=== PATIENT | male | born 1955 | race Two or more races ===

== ENCOUNTER → 2020-02-20 | Outpatient (CLI) | payer MEDICARE, MEDICAID ==
[2020-02-20 08:18] LABS: HEMATOCRIT 30.8 % (37.9-51.0); HEMOGLOBIN 10.4 g/dL (13.5-17.0); MEAN CORPUSCULAR HEMOGLOBIN 29.3 pg (27.0-33.4); MEAN CORPUSCULAR HGB CONC 33.9 g/dL (32.0-36.0); MEAN CORPUSCULAR VOLUME 86 fl (80-97); PLATELET COUNT 350 10^3/uL (150-450); RED BLOOD COUNT 3.57 10^6/uL (4.35-5.55); RED CELL DISTRIBUTION WIDTH 14.9 % (11.5-14.0); WHITE BLOOD COUNT 7.4 10^3/uL (4.0-10.5)
[2020-02-20 08:39] LABS: ALBUMIN 3.3 g/dL (3.5-5.0); ALKALINE PHOSPHATASE 93 U/L (38-126); ANION GAP 8 (5-19); ASPARTATE AMINO TRANSFERASE 17 U/L (17-59); BILIRUBIN,DIRECT 0.2 mg/dL (0.0-0.4); BILIRUBIN,TOTAL 0.2 mg/dL (0.2-1.3); BLOOD UREA NITROGEN 19 mg/dL (7-20); CALCIUM 8.5 mg/dL (8.4-10.2); CARBON DIOXIDE 23 mmol/L (22-30); CHLORIDE 108 mmol/L (98-107); CHOLESTEROL 78.34 mg/dL (0-200); GLUCOSE 75 mg/dL (75-110); IRON(TIBC) 29.9 ug/dL (49-181); POTASSIUM 4.2 mmol/L (3.6-5.0); TOTAL PROTEIN 6.1 g/dL (6.3-8.2); TRIGLYCERIDES 92 mg/dL (<150)
[2020-02-20 08:50] LABS: DIRECT LDL 37 mg/dL (<100)
== END ==
LOC: OD 07:13
PROVIDERS: ATTEND Physician Assistant
DX: E11.22 Type 2 diabetes mellitus with diabetic chronic kidney disease (principal); I12.9 Hypertensive chronic kidney disease with stage 1 through stage 4 chronic kidney disease, or unspecified chronic kidney disease; N18.9 Chronic kidney disease, unspecified; D63.1 Anemia in chronic kidney disease; E78.5 Hyperlipidemia, unspecified; R35.1 Nocturia
CPT/HCPCS: 36415; 80053; 80061; 83036; 83540; 83550; 84153; 85027

== ENCOUNTER → 2020-09-22 | Outpatient (CLI) | payer MEDICARE, MEDICAID ==
--- NOTE | 2020-09-22 16:33 | RADIOLOGY REPORT (SQ) ---
EXAM DESCRIPTION: [employer]; ARTERIAL LOWER EXTREM BILAT IMAGES COMPLETED DATE/TIME: 09/22/2020 4:08 pm REASON FOR STUDY: LT FOOT ULCER L97.522 NON-PRS CHRONIC ULCER OTH PRT LEFT FOOT W FAT LAYER COMPARISON: None. TECHNIQUE: Dynamic and static brush scale and color images acquired of the lower extremity arteries. Additional selected spectral images recorded. ABIs recorded. LIMITATIONS: None. FINDINGS: RIGHT LEG: ABIS: ABIs range from 0.71 to 1.02. INFLOW ARTERIES: Normal, no obstruction evident. FEMORAL ARTERIES:Multiphasic waveforms. Normal, no velocity elevation to suggest focal stenosis. Norm al color Doppler evaluation. No aneurysm. POPLITEAL ARTERY:Multiphasic waveforms. Normal, no velocity elevation to suggest focal stenosis. Norm al color Doppler evaluation. No aneurysm. PATENT TIBIOPERONEAL TRUNK AND 3 VESSEL RUNOFF: Numerous collateral vessels below the knee. Small se gment occlusions in the right posterior tibial and anterior tibial arteries. Retrograde flow is seen in the distal right anterior tibial artery. TBI: Not performed. OTHER: No other significant finding. LEFT LEG: ABIS: Normal. Greater than 1. INFLOW ARTERIES: Normal, no obstruction evident. FEMORAL ARTERIES:Multiphasic waveforms. Normal, no velocity elevation to suggest focal stenosis. Norm al color Doppler evaluation. No aneurysm. POPLITEAL ARTERY:Multiphasic waveforms. Normal, no velocity elevation to suggest focal stenosis. Norm al color Doppler evaluation. No aneurysm. PATENT TIBIOPERONEAL TRUNK AND 3 VESSEL RUNOFF: At least 2 vessel runoff on the left. TBI: Not performed. OTHER: No other significant finding. 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 ABIs on the right are consistent with normal to moderate i schemia. No focal high-grade stenosis. COMMENT: [facility] NORMAL: Greater than 1.0 MINIMAL DISEASE: 0.9 to 1.0 CLAUDICATION: 0.5 to 0.9 SEVERE ARTERIAL DISEASE: Less than 0.5 [facility] NORMAL: Greater than 1.0 (1.2 If Heavy Calcifications) NORMAL TO MILD ISCHEMIA: 0.8 to 1.0 MODERATE ISCHEMIA: 0.4 to 0.8 SEVERE ISCHEMIA: Less than 0.4 TECHNICAL DOCUMENTATION: JOB ID: [id number] [employer]- All Rights Reserved Reading location - IP/workstation name: [email or web address]
--- NOTE | 2020-09-22 16:33 | RADIOLOGY REPORT (SQ) ---
EXAM DESCRIPTION: [employer]; ARTERIAL LOWER EXTREM BILAT IMAGES COMPLETED DATE/TIME: 09/22/2020 4:08 pm REASON FOR STUDY: LT FOOT ULCER L97.522 NON-PRS CHRONIC ULCER OTH PRT LEFT FOOT W FAT LAYER COMPARISON: None. TECHNIQUE: Dynamic and static brush scale and color images acquired of the lower extremity arteries. Additional selected spectral images recorded. ABIs recorded. LIMITATIONS: None. FINDINGS: RIGHT LEG: ABIS: ABIs range from 0.71 to 1.02. INFLOW ARTERIES: Normal, no obstruction evident. FEMORAL ARTERIES:Multiphasic waveforms. Normal, no velocity elevation to suggest focal stenosis. Norm al color Doppler evaluation. No aneurysm. POPLITEAL ARTERY:Multiphasic waveforms. Normal, no velocity elevation to suggest focal stenosis. Norm al color Doppler evaluation. No aneurysm. PATENT TIBIOPERONEAL TRUNK AND 3 VESSEL RUNOFF: Numerous collateral vessels below the knee. Small se gment occlusions in the right posterior tibial and anterior tibial arteries. Retrograde flow is seen in the distal right anterior tibial artery. TBI: Not performed. OTHER: No other significant finding. LEFT LEG: ABIS: Normal. Greater than 1. INFLOW ARTERIES: Normal, no obstruction evident. FEMORAL ARTERIES:Multiphasic waveforms. Normal, no velocity elevation to suggest focal stenosis. Norm al color Doppler evaluation. No aneurysm. POPLITEAL ARTERY:Multiphasic waveforms. Normal, no velocity elevation to suggest focal stenosis. Norm al color Doppler evaluation. No aneurysm. PATENT TIBIOPERONEAL TRUNK AND 3 VESSEL RUNOFF: At least 2 vessel runoff on the left. TBI: Not performed. OTHER: No other significant finding. 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 ABIs on the right are consistent with normal to moderate i schemia. No focal high-grade stenosis. COMMENT: [facility] NORMAL: Greater than 1.0 MINIMAL DISEASE: 0.9 to 1.0 CLAUDICATION: 0.5 to 0.9 SEVERE ARTERIAL DISEASE: Less than 0.5 [facility] NORMAL: Greater than 1.0 (1.2 If Heavy Calcifications) NORMAL TO MILD ISCHEMIA: 0.8 to 1.0 MODERATE ISCHEMIA: 0.4 to 0.8 SEVERE ISCHEMIA: Less than 0.4 TECHNICAL DOCUMENTATION: JOB ID: [id number] [email or web address]- All Rights Reserved Reading location - IP/workstation name: [email or web address]
== END ==
LOC: SP 11:52
PROVIDERS: ATTEND Preventive Medicine Undersea and Hyperbaric Medicine
DX: L97.522 Non-pressure chronic ulcer of other part of left foot with fat layer exposed (principal); I77.1 Stricture of artery
CPT/HCPCS: 93922; 93925

== ENCOUNTER 2020-10-06 11:37 | Emergency (ER) | payer MEDICARE, MEDICAID ==
--- NOTE | 2020-10-06 12:10 | ER Document Report ---
ED Medical Screen (RME) - General Chief Complaint: Altered Mental Status Stated Complaint: ALTERED MENTAL STATUS Time Seen by Provider: 10/06/20 12:00 Primary Care Provider: DARREL GERMAIN DPM [Primary Care Provider] - Follow up as needed Notes: Patient presents after having 2 episodes in which he was staring off for several minutes and was not responding when patient's caregiver tried to get his attention. Caregiver states that episodes only lasted for a few minutes and then patient had return back to his normal baseline. Patient without any history of seizures. Patient does have a history of prostate cancer for which he is receiving treatment, diabetes and a current foot ulcer. Patient denies any complaints at this time. Patient awake alert and oriented. Patient denies any chest pain nausea or vomiting. I have greeted and performed a rapid initial assessment of this patient. A comprehensive ED assessment and evaluation of the patient, analysis of test results and completion of the medical decision making process will be conducted by additional ED providers. 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
--- NOTE | 2020-10-06 12:37 | RADIOLOGY REPORT (SQ) ---
EXAM DESCRIPTION: CHEST SINGLE VIEW IMAGES COMPLETED DATE/TIME: 10/06/2020 12:24 pm REASON FOR STUDY: AMS COMPARISON: None. EXAM PARAMETERS: NUMBER OF VIEWS: One view. TECHNIQUE: Single frontal radiographic view of the chest acquired. RADIATION DOSE: NA LIMITATIONS: None. FINDINGS: LUNGS AND PLEURA: No opacities, masses or pneumothorax. No pleural effusion. MEDIASTINUM AND HILAR STRUCTURES: No masses. Contour normal. HEART AND VASCULAR STRUCTURES: Heart normal in size. Normal vasculature. BONES: No acute findings. HARDWARE: Left subclavian base chest port with catheter tip at SVC. OTHER: No other significant finding. IMPRESSION: NO ACUTE RADIOGRAPHIC FINDING IN THE CHEST. TECHNICAL DOCUMENTATION: JOB ID: [id number] 2010 [employer]- All Rights Reserved Reading location - IP/workstation name: [email or web address]
--- NOTE | 2020-10-06 12:42 | RADIOLOGY REPORT (SQ) ---
EXAM DESCRIPTION: CT HEAD WITHOUT IMAGES COMPLETED DATE/TIME: 10/06/2020 12:22 pm REASON FOR STUDY: AMS, staring episodes, hx prostate Ca COMPARISON: None. TECHNIQUE: Axial images acquired through the brain without intravenous contrast. Images reviewed wi th bone, brain and subdural windows. Additional sagittal and coronal reconstructions were generated. Images stored on PACS. All CT scanners at this facility use dose modulation, iterative reconstruction, and/or weight based d osing when appropriate to reduce radiation dose to as low as reasonably achievable (ALARA). [facility]: Dose Right [facility]: CareDose [facility]: Dose Right [facility]: Teradose 4D [facility]: [employer] RADIATION DOSE: CT Rad equipment meets quality standard of care and radiation dose reduction techniq ues were employed. CTDIvol: 53.2 mGy. DLP: 1044 mGy-cm. mGy. LIMITATIONS: None. FINDINGS: VENTRICLES: Mildly prominent. CEREBRUM: No masses. No hemorrhage. No midline shift. No evidence for acute infarction. Normal gra y/white matter differentiation. No areas of low density in the white matter. Areas of periventricula r and subcortical hypoattenuation, nonspecific but likely sequelae of microangiopathic disease. CEREBELLUM: No masses. No hemorrhage. No alteration of density. No evidence for acute infarction. EXTRAAXIAL SPACES: No fluid collections. No masses. ORBITS AND GLOBE: No intra- or extraconal masses. Normal contour of globe without masses. CALVARIUM: No fracture. PARANASAL SINUSES: No fluid or mucosal thickening. SOFT TISSUES: No mass or hematoma. OTHER: No other significant finding. IMPRESSION: No evidence of acute intracranial process. Periventricular and subcortical hypoattenuation, nonspecific but likely sequelae of microangiopathic disease. EVIDENCE OF ACUTE STROKE: NO. COMMENT: Quality ID # [id number]: Final reports with documentation of one or more dose reduction techniques (e.g., Automated exposure control, adjustment of the mA and/or kV according to patient size, use of iterative reconstruction technique) TECHNICAL DOCUMENTATION: JOB ID: [id number] 2010 [email or web address]- All Rights Reserved Reading location - IP/workstation name: [email or web address]
[2020-10-06 13:33] LABS: ABSOLUTE EOSINOPHILS # (AUTO) 0.5 10^3/uL (0.0-0.6); ABSOLUTE LYMPHOCYTES (AUTO) 0.9 10^3/uL (0.5-4.7); ABSOLUTE MONOCYTES (AUTO) 0.6 10^3/uL (0.1-1.4); ABSOLUTE NEUT (AUTO) 4.3 10^3/uL (1.7-8.2); BASOPHILS % (AUTO) 0.4 % (0-2); EOSINOPHILS % (AUTO) 7.6 % (0-6); HEMATOCRIT 28.6 % (37.9-51.0); HEMOGLOBIN 9.5 g/dL (13.5-17.0); LYMPHOCYTES % (AUTO) 14.9 % (13-45); MEAN CORPUSCULAR HEMOGLOBIN 28.9 pg (27.0-33.4); MEAN CORPUSCULAR HGB CONC 33.2 g/dL (32.0-36.0); MEAN CORPUSCULAR VOLUME 87 fl (80-97); MONOCYTES % (AUTO) 8.8 % (3-13); PLATELET COUNT 184 10^3/uL (150-450); RED BLOOD COUNT 3.28 10^6/uL (4.35-5.55); RED CELL DISTRIBUTION WIDTH 12.6 % (11.5-14.0); SEGMENTED NEUTROPHILS % (AUTO) 68.3 % (42-78); TOTAL CELLS COUNTED % (AUTO) 100 %; WHITE BLOOD COUNT 6.3 10^3/uL (4.0-10.5)
[2020-10-06 13:35] LABS: APPEARANCE,URINE SLIGHTLY-CLOUDY; BILIRUBIN,URINE NEGATIVE (NEGATIVE); COLOR,URINE YELLOW; GLUCOSE, URINE NEGATIVE (NEGATIVE); KETONES,URINE NEGATIVE (NEGATIVE); LEUKOCYTE ESTERASE,URINE LARGE (NEGATIVE); NITRITE,URINE POSITIVE (NEGATIVE); PROTEIN,URINE NEGATIVE (NEGATIVE); URINE SPECIFIC GRAVITY 1.008; UROBILINOGEN,URINE NEGATIVE mg/dL (<2.0)
[2020-10-06] MEDS ORDERED: CEFTRIAXONE 1 GM/D5W RTU 1 GM/50 ML RTUPB IV ONE (13:43)
[2020-10-06 13:50] LABS: ALBUMIN 4.2 g/dL (3.5-5.0); ALKALINE PHOSPHATASE 72 U/L (38-126); ANION GAP 12 (5-19); ASPARTATE AMINO TRANSFERASE 37 U/L (17-59); BILIRUBIN,DIRECT 0.4 mg/dL (0.0-0.4); BILIRUBIN,TOTAL 0.4 mg/dL (0.2-1.3); BLOOD UREA NITROGEN 43 mg/dL (7-20); CALCIUM 10.4 mg/dL (8.4-10.2); CARBON DIOXIDE 26 mmol/L (22-30); CHLORIDE 102 mmol/L (98-107); GLUCOSE 85 mg/dL (75-110); POTASSIUM 4.5 mmol/L (3.6-5.0)
[2020-10-06] MEDS ORDERED: NORMAL SALINE 1000 ML 1,000 ML IV ONE (13:57)
--- NOTE | 2020-10-06 14:17 | ER Document Report ---
ED General - General Chief Complaint: Altered Mental Status Stated Complaint: ALTERED MENTAL STATUS Time Seen by Provider: 10/06/20 12:00 Primary Care Provider: DARREL GERMAIN DPM [Primary Care Provider] - Follow up as needed MARY MONROY MD [NO LOCAL MD] - Follow up in 3-5 days - [facility] Notes: Patient is a 65-year-old male with a past medical history of prostate cancer on chemotherapy, diabetes who presents with 2 episodes of altered mental status. Patient is with his caregiver. He lives in a snf and has 24/7 care. The caregiver states that the episode happened just prior to arrival. She states he was getting his haircut when he had an episode that lasted about 3 minutes where he stared off into the ceiling and was not responding to his name. This happened twice in 5 minutes. Nothing made it better or worse. They checked his sugar and it was 76 prior to the incident. Patient is now completely back to normal. Denies any complaints. He is incontinent and wears a depends. He has not had any recent prostate instrumentation. No fevers or chills. - Related Data Allergies/Adverse Reactions: No Known Allergies Allergy (Unverified 10/06/20 12:09) Past Medical History - General Information source: Patient, Parent - Social History Smoking Status: Never Smoker Chew tobacco use (# tins/day): No Frequency of alcohol use: None Drug Abuse: None Family History: Reviewed & Not Pertinent Patient has homicidal ideation: No Review of Systems - Review of Systems Notes: CONSTITUTIONAL: No fever, fatigue or weight loss. SKIN: No rash. HENT: No congestion, ear pain, or sore throat. CARDIOVASCULAR: No chest pain or edema. RESPIRATORY: No cough, shortness of breath, congestion, or wheezing. GASTROINTESTINAL: No abdominal pain, nausea, vomiting, bloody stools or diarrhea. GENITOURINARY: No dysuria. MUSCULOSKELETAL: No joint pain or swelling. LYMPHATIC: No swollen glands. NEUROLOGIC: No seizures. No headache or focal weakness. Positive for 2 episodes of altered mental status. HEMATOLOGIC: No unusual bruising or bleeding. PSYCHIATRIC: No depression or anxiety. Physical Exam - Vital signs Vitals: Temp Pulse Resp BP Pulse Ox 97.4 F 63 18 102/72 100 10/06/20 11:50 10/06/20 11:50 10/06/20 11:50 11/25/20 11:50 10/06/20 11:50 - General General appearance: Appears well Notes: VITAL SIGNS: Within normal limits. GENERAL: No acute distress, non-toxic appearance. HEAD: Normal with no signs of head trauma. EYES: EOMI, conjunctiva normal, no discharge. EARS: Hearing grossly intact. NOSE: Normal. NECK: Normal range of motion, no tenderness, supple, no lymphadenopathy, No adenopathy, no JVD. CHEST: Clear breath sounds bilaterally. No wheezes, rales, or rhonchi. CARDIAC: Regular rate and rhythm. S1 and S2, without murmurs, gallops, or rubs. VASCULAR: No Edema. Peripheral pulses normal and equal ABDOMEN: Normal and soft with no tenderness, no masses or pulsatile masses. GENITOURINARY: Normal, No tenderness MUSCULOSKELETAL: Good range of motion of all major joints. Extremities without clubbing, cyanosis or edema. NEUROLOGICAL: Alert and oriented x 3. No focal sensory or strength deficits. Speech normal. Follows commands appropriately. NIH is 0. PSYCHIATRIC: Normal Affect, judgement and mood. SKIN: Normal appearance with no rashes or lesions. Course - Re-evaluation Re-evalutation: 10/06/20 14:15 Patient is back at baseline. He has no complaints. He is neurologically intact with no focal deficits. He does have evidence of a UTI with nitrates and leukocyte esterase. He is at risk for UTIs because he wears depends. This could be a possible etiology of his 2 episodes of altered mental status. Patient's head CT and chest x-ray were negative for acute pathology. He does appear slightly dehydrated on his blood work and creatinine. I will give fluids and Rocephin. Urine will be sent for culture. Likely, patient will be discharg ed back to the snf. We will ambulate him to make sure he is steady on his feet. Patient and caregiver are in agreement to the plan. Patient ambulated without difficulty. He is at baseline. He is very agreeable with the plan for discharge. His caregiver did ask for a referral to neurology in case this episode could have been seizure-like. 10/06/20 20:41 - Vital Signs Vital signs: Temp Pulse Resp BP Pulse Ox 97.4 F 78 15 123/75 100 10/06/20 11:50 10/06/20 15:00 10/06/20 15:51 10/06/20 15:51 10/06/20 15:51 - Laboratory Result Diagrams: 10/06/20 12:55 10/06/20 12:55 Laboratory results interpreted by me: 10/06/20 10/06/20 10/06/20 12:55 12:55 13:00 RBC 3.28 L Hgb 9.5 L Hct 28.6 L Eos % (Auto) 7.6 H BUN 43 H Creatinine 2.02 H Est GFR ( Amer) 40 L Est GFR (MDRD) Non-Af 33 L Calcium 10.4 H ALT 57 H Urine Nitrite POSITIVE H Ur Leukocyte Esterase LARGE H - Diagnostic Test Radiology reviewed: Image reviewed, Reports reviewed - EKG Interpretation by Me EKG shows normal: Sinus rhythm Rate: Normal Rhythm: NSR When compared to previous EKG there are: Previous EKG unavailable Additional EKG results interpreted by me: 10/06/20 14:18 Sinus rhythm at a rate of 73. QTc 432. No acute ST changes. No previous EKG available for comparison. Discharge - Discharge Clinical Impression: Mental status change resolved Urinary tract infection Qualifiers: Urinary tract infection type: site unspecified Hematuria presence: without hematuria Qualified Code(s): N39.0 - Urinary tract infection, site not specified Condition: Stable Disposition: HOME, SELF-CARE Instructions: Urinary Tract Infection ([facility]) Additional Instructions: Your work-up today is reassuring. You do have evidence of a urinary tract infection. Please take the antibiotics as prescribed. Please follow-up with the family doctor. Please return to the ER for any fevers, worsening symptoms, any other repeat episodes. Prescriptions: Cephalexin Monohydrate [Keflex 500 mg Capsule] 500 mg PO QID 7 Days #28 capsule Referrals: DARREL GERMAIN DPM [Primary Care Provider] - Follow up as needed MARY MONROY MD [NO LOCAL MD] - Follow up in 3-5 days
[2020-10-06 16:01] VITALS: BP 123/75
--- NOTE | 2020-10-06 19:40 | EKG REPORT ---
SEVERITY:- NORMAL ECG - SINUS RHYTHM : Confirmed by: Yuriy Monge MD 06-Oct-2020 19:39:35
== END 2020-10-06 17:16 | disposition home or self-care (01) ==
LOC: ER 11:37
DX: N39.0 Urinary tract infection, site not specified (principal); R32 Unspecified urinary incontinence; R41.82 Altered mental status, unspecified; E11.9 Type 2 diabetes mellitus without complications; C61 Malignant neoplasm of prostate; Z79.899 Other long term (current) drug therapy
CPT/HCPCS: 93005; 99285; 96361; 96365; 36415; 87040; 87086; 85025; 87088; 80053; 81001; 84484; 87186; 71045; 70450; 93010; J7030; J0696